=== PATIENT | male | born 1970 | race Caucasian/White ===

== ENCOUNTER 2023-07-16 13:19 | Emergency (ER) | payer OTHER, SELFPAY ==
[2023-07-16 13:54] VITALS: BP 130/96
[2023-07-16 14:26] LABS: % Basophils 0.4 % (0-2); % Immature Granulocytes 0.4 % (0-0.5); % Lymphocytes 7.5 % (20.5-51.1); % Neutrophils 85.7 % (42.2-75.2); Absolute Lymphocytes 0.6 10^3/uL (1.2-3.4); Absolute Monocytes 0.5 10^3/uL (0.1-0.6); Absolute Neutrophils 6.7 10^3/uL (1.4-6.5); Hemoglobin 15.7 g/dL (13.0-18.0); Mean Corp Hgb Conc. 35.7 g/dL (33.0-37.0); Mean Corpuscular Hgb 29.8 pg (27.0-31.0); Mean Corpuscular Volume 83.5 fL (80.0-94.0); Mean Platelet Volume 9.8 fL (7.4-10.4); Nucleated Red Blood Cells % 0 % (-); Platelet Count 144 10^3/uL (130-400); Red Blood Cell Count 5.27 10^6/uL (4.70-6.10); Red Cell Dist. Width 12.9 % (11.5-14.5); White Blood Cell Count 7.8 10^3/uL (4.8-10.8)
[2023-07-16 14:46] LABS: Lactic Acid 1.3 mmol/L (0.7-2.0)
[2023-07-16 14:59] LABS: ALT (SGPT) 387 U/L (0-50); AST (SGOT) 441 U/L (17-59); Alkaline Phosphatase 172 U/L (38-126); Blood Urea Nitrogen 16 mg/dl (9-20); Carbon Dioxide 28 mmol/L (22-30); Chloride 101 mmol/L (98-107); Glucose 113 mg/dl (70-99); Potassium 3.6 mmol/L (3.5-5.1); Sodium 133 mmol/L (135-145); Total Bilirubin 2.5 mg/dl (0.2-1.3); Total Protein 7.2 g/dl (6.3-8.2); eGFR > 60.00
[2023-07-16 15:50] LABS: COVID-19 Antigen Negative (Negative)
--- NOTE | 2023-07-16 17:19 | ED.GENMED ---
History of Present Illness
General
Chief Complaint: Fever
Source: patient
Exam Limitations: none
Time Seen by Provider: 07/16/23 16:55
Travel History
Have you had any contact with someone who has COVID-19?: No
Do you have any symptoms of coronavirus? Fever > 100 degrees, chills, cough, shortness of breath, sore throat, loss of taste or smell, muscle aches, or headache?: No
History of Present Illness
History of Present Illness:
See MDM
Past History
Past History
ED Past Medical History: None
ED Past Surgical History: None
Phy Exam
Physical Exam
Physical Exam:
See MDM
Course
Orders/Labs/Results
Orders:
Orders
07/16/23 14:08
COVID-19 Antigen Urgent
Source: Nasal Swab
Complete Blood Count/With Diff Urgent
Comprehensive Metabolic Panel Urgent
Lipase Urgent
Comment: ADD ON
Monotest Urgent
Comment: ADD ON
Blood Culture Urgent
MJ Source: Blood/Venous
Specimen Description:
Influenza A+B Rapid Molecular Urgent
MJ Source: Nasal Swab
Specimen Description:
07/16/23 14:09
Lactic Acid Urgent
07/16/23 17:19
Add On- LAB Urgent
Tests Added?: Monotest
US Abdomen Complete/Upper Urgent
Comment:
Reason For Exam: RUQ pain
07/16/23 17:22
Add On- LAB Urgent
Tests Added?: Lipase
Abnormal Lab Results
07/16/23
14:08
Absolute Neuts (auto) 6.7 H 10^3/uL
(1.4-6.5)
Absolute Lymphs (auto) 0.6 L 10^3/uL
(1.2-3.4)
Neutrophils % 85.7 H %
(42.2-75.2)
Lymphocytes % 7.5 L %
(20.5-51.1)
Sodium 133 L mmol/L
(135-145)
Glucose 113 H mg/dl
(70-99)
Total Bilirubin 2.5 H mg/dl
(0.2-1.3)
AST 441 H U/L
(17-59)
ALT 387 H U/L
(0-50)
Alkaline Phosphatase 172 H U/L
(38-126)
07/16/23 14:08
07/16/23 14:08
Vital Signs
Initial and Last Documented VS:
Initial Vital Signs
Temp Pulse Resp BP Pulse Ox
100.3 F 120 16 130/96 98
07/16/23 13:54 07/16/23 13:54 07/16/23 13:54 07/16/23 13:54 07/16/23 13:54
Last Documented Vital Signs
Temp Pulse Resp BP Pulse Ox
100.3 F 120 16 130/96 98
07/16/23 13:54 07/16/23 13:54 07/16/23 13:54 07/16/23 13:54 07/16/23 13:54
MDM/Problems Addressed
Differential Diagnosis Includes:
HPI and MDM Narrative:
53-year-old male presenting with fever. Patient states he is actually feeling better. He states that he had a shaking chill and an elevated fever yesterday. He is currently on amoxicillin for dental infection. He states his dental infection is
improving and he is due for root canal soon. Given the ongoing fevers, the dentist sent him in to rule out any other source of infection. Patient states he is feeling completely better and would like to go home. However, I discussed elevated
LFTs. Patient states his LFTs are normally elevated does not know the actual number. He states his doctor ordered his routine abdominal ultrasound to keep an eye on his liver. He has no tenderness on exam. He states he has a history of
gallstones.
Physical exam
General: Well appearing and non-toxic
HEENT: protecting airway. No dental abscess
Neck: appears supple
CV: No evidence of cyanosis
Resp: No accessory muscle use
Abd: Non-distended. Soft and nontender
Extremities: No deformities
Neuro: alert
Psych: Normal affect
Skin: Intact
Problems Addressed including Acute and Chronic Conditions affecting care:
1. Fever
Acuity: acute
Prognosis: stable
Details: Initially thought to be related to dental infection. Given the elevated LFTs, will obtain right upper quadrant ultrasound
Updates
Lipase and mono negative.
I went over the ultrasound report with the patient. The ultrasound report is borderline. There is mild sludge and mild top normal gallbladder wall thickening but no sonographic Erickson sign.
Patient states to go home. He understands my concerns with elevated LFTs. I printed out the ultrasound report and patient given printed blood work. We discussed he must have his blood work and symptoms reevaluated by his primary care.
Differential Diagnosis (but not limited to): Acute cholecystitis, hepatitis, viral syndrome
Testing considered: CT abdomen/pelvis
Drug therapy (if applicable): OTC meds, please see d/c instruction regarding Rx drugs
Amount and/or Complexity of Data Reviewed
Clinical info obtained from: Patient
External data reviewed: N/A
Labs I independently reviewed (but not limited to): Elevated LFTs
Radiology: Ultrasound report reviewed
Pulse Ox: not hypoxic
EKG independently reviewed: N/A
Basic Sciences Professor: N/A
Critical Care: N/A
Risk of Complication:
Social Determinants of health: Good social support
Discussed with other providers: N/A
Escalation of Care includes Admit/Obs: After being observed in the Emergency Department, pt stable for discharge.
Occasional wrong word or 'sound a like' substitutions may have occurred due to the inherent limitations of voice recognition software. Read the chart carefully and recognize, using context, where substitutions have occurred.
*Critical Care Note
Total Time (30-74mins, 75-104mins- exclusive of procedures): Not Applicable
ED Attending Note
-
Portions of this chart may have been created with voice recognition software.� Occasional wrong word or��sound alike� substitutions may have occurred due to the inherent limitations of voice recognition software.
Discharge Plan
Departure
Patient Disposition: Home (Routine Discharge)
Date of Disposition: 07/16/23
Time of Disposition: 19:20
Patient with high blood pressure during this ER visit?: No
Discharge Problem:
Elevated LFTs
Referrals:
Juan J Melara MD [Family Provider] -
Activity Restrictions/Additional Instructions:
It is not clear what is causing your liver function test to be abnormal. Certain viruses and infection can cause this. If you notice persistent fevers or any belly pain, please return immediately. Please call your doctor tomorrow to explain your
abnormal blood work. This must be repeated in a timely matter. Please have discussion with your primary care doctor.
Interventions
Interventions:
*ED COVID-19 Vaccine History Last Done: 07/16/23 13:54
[2023-07-16 18:30] LABS: Lipase 88 U/L (23-300)
[2023-07-16 18:55] LABS: Monotest Negative (Negative)
[2023-07-16 19:37] VITALS: BP 129/87
== END 2023-07-16 19:45 | disposition home or self-care (01) ==
LOC: EMR 13:19
PROVIDERS: Emergency Medicine; EMERGENCY PHYSICIAN Student in an Organized Health Care Education/Training Program; FAMILY PHYSICIAN Family Medicine
DX: R94.5 Abnormal results of liver function studies (principal); R50.9 Fever, unspecified; Z11.52 Encounter for screening for COVID-19
CPT/HCPCS: 99284; 76700; 80053; 83605; 83690; 85025; 86308; 87040; 87502; 87811